=== PATIENT | male | born 1985 | race Caucasian/White ===

== ENCOUNTER 2016-11-24 08:05 | Emergency (ER) | payer SELFPAY ==
--- NOTE | 2016-11-24 08:51 | ED ---
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 He applied a pressure dressing and bleeding was controlled. When he took the bandage off today it began bleeding again, so he came to the ED for evaluation. His tetanus is up to date. He has mild pain and full function in the digit. - History of Current Complaint Stated Complaint: LT HAND/FINGER LAC Time Seen by Provider: 11/24/16 08:34 Hx Obtained From: Patient Mechanism of Injury: Sharp/Blunt Trauma Onset/Duration: Sudden Onset Aggravating: Movement Alleviating: Nothing Timing: Constant Onset Severity: Severe Current Severity: Mild Pain Intensity: 0 Associated Signs & Symptoms: Pain Related Hx: Dominant Hand (Right) PMH/Surg Hx/FS Hx/Imm Hx Previously Healthy: Yes Infectious Disease History: No Infectious Disease History: Denies: Traveled Outside the [place] in Last 30 Days - Family History Known Family History: Positive: None - Social History Occupation: Employed Full-time Lives: With Family Alcohol Use: Weekly Alcohol Amount: 1-2 times / week Substance Use Type: Reports: None Smoking Status (MU): Never Smoked Tobacco Review of Systems Positive: Other - 1 cm skin avulsion to palmar aspect of left index finger Negative: Weakness, Paresthesia All Other Systems Reviewed And Are Negative: Yes Physical Exam Triage Information Reviewed: Yes Vital Signs On Initial Exam: Initial Vitals Temp Pulse Resp Pulse Ox 97.5 F 78 20 100 11/24/16 08:07 11/24/16 08:07 11/24/16 08:07 11/24/16 08:07 Vital Signs Reviewed: Yes Appearance: Positive: Well-Appearing, Well-Nourished, Pain Distress Skin: Positive: Warm, Skin Color Reflects Adequate Perfusion, Dry, Tender - 1 cm skin avulsion to palmar aspect of the left index finger, Soft Head/Face: Positive: Normal Head/Face Inspection Eyes: Positive: EOMI, DIANA, Conjunctiva Clear ENT: Positive: Hearing grossly normal Neck: Positive: Supple, Nontender Respiratory/Lung Sounds: Positive: Breath Sounds Present Cardiovascular: Positive: RRR Musculoskeletal: Positive: Strength/ROM Intact Neurological: Positive: Sensory/Motor Intact, Alert, Oriented to Person Place, Time, NV Bundle Intact Distally, Normal Gait Psychiatric: Positive: Affect/Mood Appropriate AVPU Assessment: Alert Diagnostics - Vital Signs Vital Signs Temp Pulse Resp BP Pulse Ox 11/24/16 08:09 98.5 F 66 20 137/77 100 11/24/16 08:07 97.5 F 78 20 100 - Laboratory Lab Statement: Any lab studies that have been ordered have been reviewed, and results considered in the medical decision making process. Laceration Repair Course/Dx - Differential Dx Differental Diagnoses: Abrasion, Avulsion, Cellulitis, Dehiscence, Hematoma, Laceration, Puncture Wound - Clinical Impression Provider Diagnoses: Avulsion of skin of index finger Discharge - Discharge Plan Condition: Stable Disposition: HOME Patient Education Materials: Skin Avulsion (ED) Additional Instructions: Please keep your wound clean and dry while it heals. Cover with a bandaid as needed. Follow-up with your regular doctor if symptoms continue. Return to the emergency department if symptoms worsen.
[2016-11-24 09:14] VITALS: BP 122/70
== END 2016-11-24 09:05 | disposition home or self-care (01) ==
LOC: ED 08:05
DX: S61.211A Laceration without foreign body of left index finger without damage to nail, initial encounter (principal); W45.8XXA Other foreign body or object entering through skin, initial encounter; Y93.9 Activity, unspecified; Y92.9 Unspecified place or not applicable
CPT/HCPCS: 99282